=== PATIENT | female | born 1980 | race Caucasian/White ===

== ENCOUNTER 2017-06-03 11:53 | Emergency (ER) | payer MEDICARE ==
[~2017-06-03] VITALS: Ht 167.6 cm; Wt 93.1 kg
[2017-06-03 12:12] VITALS: BP 112/74
== END 2017-06-03 13:07 | disposition home or self-care (01) ==
LOC: ED 12:26
DX: J01.00 Acute maxillary sinusitis, unspecified (principal)
CPT/HCPCS: 99283